=== PATIENT | male | born 1965 | race Native Hawaiian/Other Pacific Islander ===

== ENCOUNTER 2017-08-29 21:36 | Emergency (ER) | payer BC ==
[~2017-08-29] VITALS: Ht 175.3 cm; Wt 79.4 kg
[2017-08-29 21:56] LABS: PLATELET COUNT 247 K/uL (142-355)
[2017-08-29 22:34] VITALS: BP 151/101; TEMP 98
== END 2017-08-29 22:34 | disposition home or self-care (01) ==
LOC: ED 21:36
DX: K57.30 Diverticulosis of large intestine without perforation or abscess without bleeding (principal); N20.1 Calculus of ureter; N23 Unspecified renal colic
CPT/HCPCS: 36415; 81000; 85027; 96365; 96374; 96375; 99284; J1885; J2175; J2405

== ENCOUNTER 2019-04-14 23:53 | Emergency (ER) | payer BC ==
[~2019-04-14] VITALS: Ht 175.3 cm; Wt 79.4 kg
[2019-04-15 00:17] LABS: PLATELET COUNT 200 K/uL (142-355)
[2019-04-15 00:22] LABS: POTASSIUM 3.6 mmol/L (3.6-5.2)
[2019-04-15 01:28] VITALS: BP 142/93; TEMP 97.7
== END 2019-04-15 01:30 | disposition home or self-care (01) ==
LOC: ED 23:53
PROVIDERS: Student in an Organized Health Care Education/Training Program
DX: N23 Unspecified renal colic (principal); N13.2 Hydronephrosis with renal and ureteral calculous obstruction
CPT/HCPCS: 80053; 81000; 83690; 83735; 85027; 96360; 96375; 99284; J1170; J1885; J2405

== ENCOUNTER 2019-04-15 08:01 | Emergency (ER) | payer BC ==
[~2019-04-15] VITALS: Ht 175.3 cm; Wt 79.4 kg
[2019-04-15 08:34] VITALS: BP 157/88; TEMP 97.3
== END 2019-04-15 08:42 | disposition home or self-care (01) ==
LOC: ED 08:01
DX: N20.0 Calculus of kidney (principal); Z87.442 Personal history of urinary calculi
CPT/HCPCS: 99281

== ENCOUNTER 2021-03-15 23:18 | Emergency (ER) | payer BC ==
[~2021-03-15] VITALS: Ht 175.3 cm; Wt 81.6 kg
[2021-03-16 01:04] LABS: PLATELET COUNT 171 K/uL (142-355)
[2021-03-16 01:13] LABS: POTASSIUM 3.9 mmol/L (3.6-5.2)
[2021-03-16 02:10] VITALS: BP 128/78; TEMP 98.5
== END 2021-03-16 02:10 | disposition home or self-care (01) ==
LOC: ED 23:18
PROVIDERS: Family Medicine
DX: N13.2 Hydronephrosis with renal and ureteral calculous obstruction (principal); Z87.442 Personal history of urinary calculi
CPT/HCPCS: 36415; 80053; 81000; 85027; 96360; 96375; 99284; J0360; J1885; J2405

== ENCOUNTER 2022-12-05 22:14 | Emergency (ER) | payer BC ==
[~2022-12-05] VITALS: Ht 175.3 cm; Wt 80.7 kg
[2022-12-05 22:20] VITALS: BP 140/66; TEMP 98
== END 2022-12-05 23:35 | disposition home or self-care (01) ==
LOC: ED 22:14
PROC: 0HQGXZZ Repair Left Hand Skin, External Approach (ICD-10-PCS; principal; 2022-12-05)
DX: S61.412A Laceration without foreign body of left hand, initial encounter (principal); W26.0XXA Contact with knife, initial encounter; Y92.89 Other specified places as the place of occurrence of the external cause
CPT/HCPCS: 99283